=== PATIENT | female | born 1970 | race Caucasian/White ===

== ENCOUNTER → 2016-11-01 | Outpatient (CLI) | payer BC ==
[~2016-11-01] MED LIST: CETI10TA84 PO
--- NOTE | 2016-11-01 14:30 | MAMMOGRAPHY REPORT ---
BILATERAL DIGITAL DIAGNOSTIC MAMMOGRAM TOMOSYNTHESIS WITH CAD AND TARGETED LEFT ULTRASOUND: 11/01/2016 CLINICAL HISTORY: 46-year-old woman whose provider felt a lump in the 3:00 left breast on physical ex am approximately 2 weeks ago. No skin changes or nipple discharge. Also baseline mammogram. TECHNIQUE: Bilateral breast tomosynthesis in addition to standard 2D mammography was performed. Spot magnification CC and ML views of each breast were also obtained. Current study was also evaluated w ith a Computer Aided Detection (CAD) system. COMPARISON: No prior exams were available for comparison. BREAST COMPOSITION: The tissue of both breasts is heterogeneously dense, which may obscure small mas ses. FINDINGS: A triangular skin palpable marker overlies the 3:00 left breast, denoting the palpable lump identified by the patient's provider. In the area of palpable concern, there is a lobulated and cir cumscribed 22 x 24 x 24 mm mass. A second similar appearing yet smaller circumscribed mass measuring 15 x 18 x 15 mm is seen in the 12:00 middle one third of the left breast. No focal area of architec tural distortion or other obvious mass is identified bilaterally. There are grouped microcalcificati ons in the lateral right breast and medial left breast, for which bilateral spot magnification views were obtained. On the spot magnification views of each breast, there are diffuse round and punctate microcalcificati ons and a few benign rim calcifications. No discrete suspicious grouping or cluster of microcalcific ations is seen bilaterally. The calcifications most likely represent benign fibrocystic changes but given that they are identified on a baseline exam, a short interval follow-up diagnostic mammogram is recommended to ensure stability. Targeted ultrasound was performed in the area of palpable lump in the 3:00 left breast, in the area o f palpable concern identified by the patient's provider, and also in the 12:00 left breast, for the p ossible second mammographic mass. In the 3:00 axis, 2 cm from the nipple, there are 3 abutting anech oic benign simple cysts. They measure approximately 24 x 15 x 25 mm in conglomerate. In the 12:00 l eft breast, 1 cm from the nipple, there is another anechoic benign simple cyst with posterior acousti c enhancement measuring 16 x 11 x 14 mm. This correlates with the second mammographic mass. These f indings are benign representing simple cysts. IMPRESSION: ACR-BI-RADS CATEGORY 3: PROBABLY BENIGN, TARGETED ULTRASOUND ACR-BI-RADS CATEGORY 3: PRO BABLY BENIGN 1. The palpable lump in the 3:00 left breast correlates with 3 abutting anechoic benign simple cysts on ultrasound, measuring 25 mm in conglomerate. Incidental note is made of a second anechoic benign simple cyst measuring 16 mm, in the 12:00 left breast. Continued clinical monitoring is recommended . 2. There are diffuse bilateral round and punctate microcalcifications which most likely represent be nign fibrocystic changes. However, given that they are identified on the patient's baseline mammogra m, repeat diagnostic mammograms including spot magnification views are recommended in 6 months. These results and recommendations were discussed with the patient at the time of the exam. She is te ntatively scheduled a follow-up appointment prior to leaving our department. Approximately 10% of breast cancers are not detected with mammography. A negative mammographic report should not delay biopsy if a clinically suggestive mass is present. Margret Little M.D. ay/:11/01/2016 10:12:04 Web Machine Tender: Sakina SANTOS)([employer]), [facility] letter sent: Follow Up Recommended 3 BI-RADS Code: ACR-BI-RADS Category 3: Probably Benign Ultrasound BI-RADS: ACR-BI-RADS Category 3: Pr obably Benign
== END | disposition home or self-care (01) ==
LOC: C.MAMM 09:16
PROVIDERS: ATTEND Nurse Practitioner Family
DX: N63 Unspecified lump in breast (principal); R92.0 Mammographic microcalcification found on diagnostic imaging of breast

== ENCOUNTER → 2017-05-10 | Outpatient (CLI) | payer OTHER ==
--- NOTE | 2017-05-10 14:30 | MAMMOGRAPHY REPORT ---
BILATERAL DIGITAL DIAGNOSTIC MAMMOGRAM TOMOSYNTHESIS WITH CAD: 05/10/2017 CLINICAL HISTORY: 46-year-old woman presents for close follow-up in both breasts. She was noted to h ave bilateral microcalcifications on baseline screening mammogram performed 11/01/2016. TECHNIQUE: Bilateral CC and MLO 2-D and tomosynthesis images, spot magnification CC and ML views of each breast were obtained. Current study was also evaluated with a Computer Aided Detection (CAD) sy stem. COMPARISON: Comparison is made to exams dated: 11/01/2016 ultrasound and 11/01/2016 mammogram - [facility]. BREAST COMPOSITION: The tissue of both breasts is heterogeneously dense, which may obscure small mas ses. FINDINGS: A previously observed palpable mass, representing a grouping of cysts in the 3:[address] has decreased in size comparing to the 11/01/2016 mammograms. The patient also reports this area is no longer palpable. There are multiple bilateral circumscribed masses scattered in each breast, w ith the circumscribed borders best identified on the tomosynthesis images. No suspicious spiculated or irregular mass, focal area of architectural distortion or developing asymmetry is identified. Spot magnification views of each breast redemonstrate diffuse punctate microcalcifications in the rig ht breast, which appear similar to the spot magnification views obtained on 11/01/2016. There are pu nctate and rim calcifications in the left breast, with punctate calcifications most numerous in the m edial posterior left breast, possibly in a segmental distribution. These also appear similar to the spot magnification views obtained on 11/01/2016 and most likely represent benign fibrocystic changes. However, another short interval follow-up bilateral diagnostic mammogram including spot magnificati on views is recommended to ensure longer stability of the calcifications. IMPRESSION: ACR-BI-RADS CATEGORY 3: PROBABLY BENIGN 1. Decreased size of a previously palpable mass/masses in the left 3:00 breast, compatible with fluc tuating/decreasing cysts. There are multiple other benign circumscribed masses scattered in each pam ast, most compatible with multiple cysts/fibrocystic changes. 2. There are diffuse punctate microcalcifications in the right breast and diffuse or calcifications in the left breast, most numerous in the medial posterior breast that most likely represent fibrocyst ic changes. However, another six-month short interval follow-up left diagnostic tomosynthesis mammog [place] according spot magnification views is recommended to ensure longer stability of the calcification s, given that they were identified on a baseline mammogram. These results and recommendations were discussed with the patient at the time of the exam. Approximately 10% of breast cancers are not detected with mammography. A negative mammographic report should not delay biopsy if a clinically suggestive mass is present. Margret Little M.D. ay/:05/10/2017 09:26:32 Iron Setter: Renita SANTOS)([employer]), [facility] letter sent: Follow Up Recommended 3 BI-RADS Code: ACR-BI-RADS Category 3: Probably Benign
== END | disposition home or self-care (01) ==
LOC: C.MAMM 08:30
PROVIDERS: ATTEND Nurse Practitioner Family
DX: R92.0 Mammographic microcalcification found on diagnostic imaging of breast (principal); N63.10 Unspecified lump in the right breast, unspecified quadrant; N63.20 Unspecified lump in the left breast, unspecified quadrant